=== PATIENT | female | born 1990 | race Two or more races ===

== ENCOUNTER → 2022-06-13 | Outpatient (CLI) | payer MEDICAID ==
[2022-06-13 12:40] LABS: Basophils # (auto) 0.2 10 ^3/uL (0-0.2); Basophils % (auto) 1.5 % (0.0-2.0); Eosinophils # (auto) 0.1 10 ^3/uL (0-0.8); Eosinophils % (auto) 0.6 % (0.0-7.0); Hematocrit 36.3 % (36.0-46.0); Hemoglobin 12.4 g/dL (12.2-16.2); Lymphocytes # (auto) 2.7 10 ^3/uL (0.4-5.4); Lymphocytes % (auto) 24.9 % (10.0-50.0); Mean Corpuscular Hemoglobin 30.8 pg (28.0-32.0); Mean Corpuscular Hgb Conc. 34.1 g/dL (32.0-36.0); Mean Corpuscular Volume 90.3 fL (80.0-100.0); Monocytes # (auto) 0.6 10 ^3/uL (0-1.3); Monocytes % (auto) 5.6 % (0.0-12.0); Neutrophils # (auto) 7.3 10 ^3/uL (1.6-8.6); Neutrophils % (auto) 67.4 % (37.0-80.0); Red Blood Cells 4.03 10^6/uL (4.0-5.20); Red Cell Distribution Width 12.7 % (11.8-14.3); White Blood Cell 10.8 10^3/uL (4.4-10.8)
[2022-06-13 13:15] LABS: Alcohol, Urine < 3.0 mg/dL (0-10); Amphetamine Screen, Urine NEGATIVE (NEGATIVE); Barbiturate Scree,Urine NEGATIVE (NEGATIVE); Benzodiazephine Screen, Urine NEGATIVE (NEGATIVE); Cannabinoid Screen, Urine NEGATIVE (NEGATIVE); Cocaine Screen, Urine NEGATIVE (NEGATIVE); Opiate Scree,Urine NEGATIVE (NEGATIVE); Phencyclidine Screen, Urine NEGATIVE (NEGATIVE)
[2022-06-14 06:06] LABS: RPR Non Reactive (Non Reactive)
== END | disposition home or self-care (01) ==
LOC: LAB 11:55
PROVIDERS: ATTEND Obstetrics & Gynecology Obstetrics
DX: Z34.80 Encounter for supervision of other normal pregnancy, unspecified trimester (principal); Z31.430 Encounter of female for testing for genetic disease carrier status for procreative management; Z36.0 Encounter for antenatal screening for chromosomal anomalies; N39.0 Urinary tract infection, site not specified; Z3A.00 Weeks of gestation of pregnancy not specified
CPT/HCPCS: 36415; 80307; 83036; 84112; 84702; 85025; 86592; 86703; 86762; 86850; 86900; 86901; 87086; 87340

== ENCOUNTER → 2022-09-06 | Outpatient (CLI) | payer MEDICAID ==
[2022-09-06 12:51] LABS: Basophils # (auto) 0 10 ^3/uL (0-0.2); Basophils % (auto) 0.3 % (0.0-2.0); Eosinophils # (auto) 0 10 ^3/uL (0-0.8); Eosinophils % (auto) 0.5 % (0.0-7.0); Hematocrit 35.4 % (36.0-46.0); Hemoglobin 11.6 g/dL (12.2-16.2); Lymphocytes # (auto) 2.5 10 ^3/uL (0.4-5.4); Lymphocytes % (auto) 24.9 % (10.0-50.0); Mean Corpuscular Hemoglobin 30.2 pg (28.0-32.0); Mean Corpuscular Hgb Conc. 32.9 g/dL (32.0-36.0); Mean Corpuscular Volume 91.9 fL (80.0-100.0); Monocytes # (auto) 0.5 10 ^3/uL (0-1.3); Neutrophils # (auto) 6.9 10 ^3/uL (1.6-8.6); Neutrophils % (auto) 69.3 % (37.0-80.0); Red Blood Cells 3.85 10^6/uL (4.0-5.20); Red Cell Distribution Width 13.2 % (11.8-14.3)
[2022-09-07 07:07] LABS: RPR Non Reactive (Non Reactive)
== END | disposition home or self-care (01) ==
LOC: LAB 12:39
PROVIDERS: ATTEND Obstetrics & Gynecology
DX: Z11.3 Encounter for screening for infections with a predominantly sexual mode of transmission (principal)
CPT/HCPCS: 36415; 85025; 86592

== ENCOUNTER 2022-09-23 17:45 | Observation (INO) | payer MEDICAID ==
[~2022-09-23] VITALS: Ht 157.5 cm; Wt 79.8 kg
== END 2022-09-23 20:37 | disposition home or self-care (01) ==
LOC: LDRP 17:45
PROVIDERS: ADMIT Obstetrics & Gynecology; ATTEND Obstetrics & Gynecology
DX: O24.419 Gestational diabetes mellitus in pregnancy, unspecified control (principal); O62.9 Abnormality of forces of labor, unspecified; Z3A.31 31 weeks gestation of pregnancy
CPT/HCPCS: 59025; 76818; 81002; 82962; G0378

== ENCOUNTER 2022-09-27 18:29 | Observation (INO) | payer MEDICAID ==
[2022-09-27] MEDS ORDERED: METF-370 PO (19:41)
== END 2022-09-27 20:11 | disposition home or self-care (01) ==
LOC: LDRP 18:29
PROVIDERS: ADMIT Obstetrics & Gynecology; ATTEND Obstetrics & Gynecology
DX: O24.419 Gestational diabetes mellitus in pregnancy, unspecified control (principal); Z3A.32 32 weeks gestation of pregnancy
CPT/HCPCS: 59025; 76818; 81002; 82948; 82962; 94760; G0378

== ENCOUNTER 2022-09-29 08:23 | Observation (INO) | payer MEDICAID ==
[~2022-09-29] VITALS: Ht 157.5 cm; Wt 78.9 kg
[~2022-09-29 08:23] MED LIST: METF-370 PO
[2022-10-03] MEDS ORDERED: PREN-96 PO ×2 (16:12)
== END 2022-10-03 17:32 | disposition home or self-care (01) ==
LOC: UNDOADMOB 10-03 15:42 → LDRP 10-03 15:42 → UNDODISOB 10-03 17:32
PROVIDERS: ADMIT Obstetrics & Gynecology; ATTEND Obstetrics & Gynecology
DX: O24.419 Gestational diabetes mellitus in pregnancy, unspecified control (principal); Z3A.32 32 weeks gestation of pregnancy
CPT/HCPCS: 59025; 76818; 81002; 82948; 82962; 94760; G0378

== ENCOUNTER 2022-09-29 18:28 | Observation (INO) | payer MEDICAID | END 2022-09-29 20:21 | disposition home or self-care (01) | LOC: LDRP 18:28 | PROVIDERS: ADMIT Obstetrics & Gynecology; ATTEND Obstetrics & Gynecology | DX: O24.415 Gestational diabetes mellitus in pregnancy, controlled by oral hypoglycemic drugs (principal); Z3A.32 32 weeks gestation of pregnancy; Z79.84 Long term (current) use of oral hypoglycemic drugs | CPT/HCPCS: 59025; 76818; 81002; 82948; 94760; G0378 ==

== ENCOUNTER 2022-10-06 18:56 | Observation (INO) | payer MEDICAID ==
[~2022-10-06] VITALS: Ht 157.5 cm; Wt 78.0 kg
[~2022-10-06 18:56] MED LIST changes: +PREN-96 PO
[2022-10-06] MEDS: TERBUTALINE SULFATE 1 MG/ML 1ML VIAL SC SCH ×3 (21:20→22:38)
== END 2022-10-06 23:50 | disposition home or self-care (01) ==
LOC: LDRP 18:56
PROVIDERS: ADMIT Obstetrics & Gynecology; ATTEND Obstetrics & Gynecology
DX: O24.419 Gestational diabetes mellitus in pregnancy, unspecified control (principal); O26.893 Other specified pregnancy related conditions, third trimester; R11.0 Nausea; Z3A.33 33 weeks gestation of pregnancy
CPT/HCPCS: 59025; 76818; 81002; 82948; 82962; 94760; 96360; 96361; 96372; G0378; J3105

== ENCOUNTER 2022-10-10 18:55 | Observation (INO) | payer MEDICAID ==
[~2022-10-10] VITALS: Ht 157.5 cm; Wt 78.9 kg
== END 2022-10-10 20:42 | disposition home or self-care (01) ==
LOC: LDRP 18:55
PROVIDERS: ADMIT Obstetrics & Gynecology; ATTEND Obstetrics & Gynecology
DX: O24.415 Gestational diabetes mellitus in pregnancy, controlled by oral hypoglycemic drugs (principal); Z3A.33 33 weeks gestation of pregnancy; Z79.84 Long term (current) use of oral hypoglycemic drugs
CPT/HCPCS: 59025; 76818; 81002; 82962; G0378

== ENCOUNTER 2022-10-13 18:53 | Observation (INO) | payer MEDICAID | END 2022-10-13 20:53 | disposition home or self-care (01) | LOC: LDRP 18:53 | PROVIDERS: ADMIT Obstetrics & Gynecology; ATTEND Obstetrics & Gynecology | DX: O24.419 Gestational diabetes mellitus in pregnancy, unspecified control (principal); Z3A.34 34 weeks gestation of pregnancy | CPT/HCPCS: 59025; 76818; 81002; 82948; 82962; G0378 ==

== ENCOUNTER 2022-10-17 09:58 | Observation (INO) | payer MEDICAID | END 2022-10-17 11:31 | disposition home or self-care (01) | LOC: UNDOADMOB 09:58 → LDRP 09:58 → UNDODISOB 11:31 | PROVIDERS: ADMIT Obstetrics & Gynecology; ATTEND Obstetrics & Gynecology | DX: O24.415 Gestational diabetes mellitus in pregnancy, controlled by oral hypoglycemic drugs (principal); Z3A.34 34 weeks gestation of pregnancy; Z79.84 Long term (current) use of oral hypoglycemic drugs | CPT/HCPCS: 59025; 76818; 81002; 82948; 82962; 94760; G0378 ==

== ENCOUNTER → 2022-10-19 | Outpatient (CLI) | payer MEDICAID ==
[2022-10-19 10:24] LABS: Basophils # (auto) 0.1 10 ^3/uL (0-0.2); Basophils % (auto) 0.8 % (0.0-2.0); Eosinophils # (auto) 0 10 ^3/uL (0-0.8); Eosinophils % (auto) 0.4 % (0.0-7.0); Hematocrit 33.7 % (36.0-46.0); Hemoglobin 12.1 g/dL (12.2-16.2); Lymphocytes # (auto) 2.2 10 ^3/uL (0.4-5.4); Mean Corpuscular Hemoglobin 32.3 pg (28.0-32.0); Mean Corpuscular Volume 89.7 fL (80.0-100.0); Monocytes # (auto) 0.4 10 ^3/uL (0-1.3); Monocytes % (auto) 5.1 % (0.0-12.0); Neutrophils % (auto) 68.7 % (37.0-80.0); Nucleated Red Blood Cells % 0.1 %; Red Blood Cells 3.76 10^6/uL (4.0-5.20); Red Cell Distribution Width 13.5 % (11.8-14.3); White Blood Cell 8.7 10^3/uL (4.4-10.8)
[2022-10-20 08:06] LABS: RPR Non Reactive (Non Reactive)
== END | disposition home or self-care (01) ==
LOC: LAB 10:06
PROVIDERS: ATTEND Obstetrics & Gynecology
DX: Z34.80 Encounter for supervision of other normal pregnancy, unspecified trimester (principal); Z3A.00 Weeks of gestation of pregnancy not specified
CPT/HCPCS: 36415; 84112; 85025; 86592

== ENCOUNTER 2022-10-20 09:57 | Observation (INO) | payer MEDICAID | END 2022-10-20 13:00 | disposition home or self-care (01) | LOC: LDRP 09:57 → UNDOADMOB 09:57 → LDRP 10:52 | PROVIDERS: ADMIT Obstetrics & Gynecology; ATTEND Obstetrics & Gynecology | DX: O24.415 Gestational diabetes mellitus in pregnancy, controlled by oral hypoglycemic drugs (principal); O26.893 Other specified pregnancy related conditions, third trimester; R19.7 Diarrhea, unspecified; Z3A.35 35 weeks gestation of pregnancy; Z79.84 Long term (current) use of oral hypoglycemic drugs | CPT/HCPCS: 59025; 76818; 81002; 82948; 94760; G0378 ==

== ENCOUNTER 2022-10-24 07:57 | Observation (INO) | payer MEDICAID ==
[2022-10-24] MEDS ORDERED: DOXY25TA9 PO (12:27)
== END 2022-10-24 12:48 | disposition home or self-care (01) ==
LOC: LDRP 10:34 → UNDOADMOB 10:34 → LDRP 11:50
PROVIDERS: ADMIT Obstetrics & Gynecology; ATTEND Obstetrics & Gynecology
DX: O24.419 Gestational diabetes mellitus in pregnancy, unspecified control (principal); Z3A.35 35 weeks gestation of pregnancy
CPT/HCPCS: 59025; 76818; 81002; 82948; 82962; 94760; G0378

== ENCOUNTER 2022-10-26 14:16 | Observation (INO) | payer MEDICAID ==
[~2022-10-26 14:16] MED LIST changes: +DOXY25TA9 PO
== END 2022-10-27 10:49 | disposition home or self-care (01) ==
LOC: UNDOADMOB 10-27 08:47 → LDRP 10-27 08:47
PROVIDERS: ADMIT Obstetrics & Gynecology; ATTEND Obstetrics & Gynecology
DX: O24.419 Gestational diabetes mellitus in pregnancy, unspecified control (principal); O34.33 Maternal care for cervical incompetence, third trimester; Z3A.36 36 weeks gestation of pregnancy
CPT/HCPCS: 59025; 76818; 81002; 82948; 82962; 94760; G0378

== ENCOUNTER 2022-11-01 09:21 | Observation (INO) | payer MEDICAID | END 2022-11-01 12:32 | disposition home or self-care (01) | LOC: LDRP 09:44 → UNDOADMOB 09:45 → LDRP 09:45 | PROVIDERS: ADMIT Obstetrics & Gynecology; ATTEND Obstetrics & Gynecology | DX: O24.419 Gestational diabetes mellitus in pregnancy, unspecified control (principal); O26.893 Other specified pregnancy related conditions, third trimester; R51.9 Headache, unspecified; Z3A.37 37 weeks gestation of pregnancy | CPT/HCPCS: 59025; 76818; 81002; 82948; 82962; 94760; G0378 ==

== ENCOUNTER 2022-11-04 09:25 | Observation (INO) | payer MEDICAID | END 2022-11-04 11:35 | disposition home or self-care (01) | LOC: LDRP 09:25 → UNDOADMOB 09:25 → LDRP 09:33 → UNDODISOB 11:35 | PROVIDERS: ADMIT Obstetrics & Gynecology; ATTEND Obstetrics & Gynecology | DX: O36.8130 Decreased fetal movements, third trimester, not applicable or unspecified (principal); O62.9 Abnormality of forces of labor, unspecified; Z3A.37 37 weeks gestation of pregnancy; Z79.84 Long term (current) use of oral hypoglycemic drugs | CPT/HCPCS: 59025; 76818; 81002; 82948; 82962; 94760; G0378 ==

== ENCOUNTER 2022-11-07 09:06 | Observation (INO) | payer MEDICAID | END 2022-11-07 10:38 | disposition home or self-care (01) | LOC: UNDOADMOB 09:06 → LDRP 09:06 → UNDODISOB 10:38 | PROVIDERS: ADMIT Obstetrics & Gynecology; ATTEND Obstetrics & Gynecology | DX: O24.419 Gestational diabetes mellitus in pregnancy, unspecified control (principal); O62.9 Abnormality of forces of labor, unspecified; Z3A.37 37 weeks gestation of pregnancy | CPT/HCPCS: 59025; 76818; 81002; 82962; 94760; G0378 ==

== ENCOUNTER 2022-11-10 08:19 | Observation (INO) | payer MEDICAID | END 2022-11-10 11:00 | disposition home or self-care (01) | LOC: UNDOADMOB 09:09 → LDRP 09:09 → UNDODISOB 11:00 | PROVIDERS: ADMIT Obstetrics & Gynecology; ATTEND Obstetrics & Gynecology | DX: O24.419 Gestational diabetes mellitus in pregnancy, unspecified control (principal); O99.891 Other specified diseases and conditions complicating pregnancy; M54.9 Dorsalgia, unspecified; O62.9 Abnormality of forces of labor, unspecified; Z3A.38 38 weeks gestation of pregnancy | CPT/HCPCS: 59025; 76818; 81002; 82948; 82962; 94760; G0378 ==

== ENCOUNTER 2022-11-15 19:13 | Inpatient (IN) | payer MEDICAID ==
[~2022-11-15] VITALS: Ht 157.5 cm; Wt 80.7 kg
[2022-11-15] MEDS ORDERED: PROMETHAZINE HCL 25 MG/ML 1ML IV PRN (19:45)
[2022-11-15] MEDS ORDERED: BUTORPHANOL TARTRATE 2 MG/1 ML VIAL IV PRN ×2 (19:45)
[2022-11-15] MEDS ORDERED: LIDOCAINE 2%HCL (LOCAL ANESTH.) INJ 20ML MDV IJ PRN (19:45)
[2022-11-15] MEDS ORDERED: diphenhdrAMINE HCL 50 MG/1 ML VL IV PRN (20:45)
[2022-11-15] MEDS ORDERED: FAMOTIDINE (10MG/ML) 2ML VL IV PRN (20:45)
[2022-11-15] MEDS ORDERED: miSOPROStol 100 mcg TAB SL PRN (20:45)
[2022-11-15] MEDS ORDERED: D5W/LACTATED RINGERS 1,000 ML IV PRN (20:45)
[2022-11-15] MEDS ORDERED: DEXTROSE (50%) 50ML SYRG IV ONE ×2 (20:45→21:00)
[2022-11-15] MEDS ORDERED: ACETAMINOPHEN 325 MG TAB PO PRN (20:45)
[2022-11-15] MEDS ORDERED: TRANEXAMIC ACID 1,000 MG in SODIUM CHL 0.9% 100 ML IV PRN (20:45)
[2022-11-15] MEDS ORDERED: LACT. RINGERS/OXYTOCIN 20UNITS 500 ML IV ONE ×2 (20:45→21:15)
[2022-11-15] MEDS ORDERED: CARBOPROST TROMETHAMINE 250 MCG/1ML VIAL IM PRN (20:45)
[2022-11-15] MEDS ORDERED: ONDANSETRON HCL 4 MG/2 ML VIAL IV PRN (20:45)
[2022-11-15] MEDS ORDERED: METHYLERGONOVINE MALEATE 0.2 MG/ML AMP IM PRN (20:45)
[2022-11-15 20:56] LABS: Basophils # (auto) 0.1 10 ^3/uL (0-0.2); Basophils % (auto) 0.8 % (0.0-2.0); Eosinophils # (auto) 0 10 ^3/uL (0-0.8); Eosinophils % (auto) 0.3 % (0.0-7.0); Hematocrit 35.1 % (36.0-46.0); Hemoglobin 11.7 g/dL (12.2-16.2); Lymphocytes # (auto) 2.5 10 ^3/uL (0.4-5.4); Mean Corpuscular Hemoglobin 30.4 pg (28.0-32.0); Mean Corpuscular Hgb Conc. 33.4 g/dL (32.0-36.0); Mean Corpuscular Volume 91.1 fL (80.0-100.0); Monocytes # (auto) 0.6 10 ^3/uL (0-1.3); Monocytes % (auto) 6.5 % (0.0-12.0); Neutrophils # (auto) 6.3 10 ^3/uL (1.6-8.6); Neutrophils % (auto) 66.4 % (37.0-80.0); Nucleated Red Blood Cells % 0.1 %; Red Blood Cells 3.85 10^6/uL (4.0-5.20); Red Cell Distribution Width 14.5 % (11.8-14.3); White Blood Cell 9.4 10^3/uL (4.4-10.8)
[2022-11-15 20:59] LABS: Urine Bacteria FEW /hpf (None Seen); Urine Blood Negative /uL (Negative); Urine Mucus FEW (None Seen); Urine Specific Gravity 1.032 (1.001-1.035); Urine WBC <1 /hpf (0 - 5)
[2022-11-15 21:09] LABS: Alcohol, Urine < 3.0 mg/dL (0-10); Amphetamine Screen, Urine NEGATIVE (NEGATIVE); Barbiturate Scree,Urine NEGATIVE (NEGATIVE); Benzodiazephine Screen, Urine NEGATIVE (NEGATIVE); Cannabinoid Screen, Urine NEGATIVE (NEGATIVE); Cocaine Screen, Urine NEGATIVE (NEGATIVE); Opiate Scree,Urine NEGATIVE (NEGATIVE); Phencyclidine Screen, Urine NEGATIVE (NEGATIVE)
[2022-11-15 21:12] LABS: INR 0.87 (0.9-1.15); Partial Thromboplastin Time 23.4 sec (24.6-33.4)
[2022-11-15 21:22] LABS: Albumin 2.3 g/dL (3.4-5.0); BUN/Creatinine Ratio 23.3 (10.0-20.0); Calcium 8.6 mg/dL (8.5-10.1)
[2022-11-15 21:24] LABS: Bilirubin, Total 0.3 mg/dL (0.2-1.0); Total Protein 6.4 g/dL (6.4-8.2)
[2022-11-15] MEDS ORDERED: ACCU-CHEK COMFORT CURVE STRIP VI SCH ×2 (22:00)
[2022-11-15] MEDS: LACTATED RINGER'S 1,000 ML IV SCH (22:25)
[2022-11-15] MEDS: miSOPROStol 50 MCG per PRE-CUT 1/2 TAB PO PRN (23:08)
[2022-11-15] MEDS: WITCH HAZEL-GLYCERIN PAD TOP PRN (23:08)
[2022-11-15] MEDS: PHISODERM TOP SOLN 240ML BTL TOP PRN (23:08)
[2022-11-15] MEDS: DERMOPLAST 60ML BOTTLE TOP PRN (23:08)
[2022-11-16] MEDS ORDERED: DIPHENOXYLATE W/ATROPINE 2.5 MG TAB PO SCH
[2022-11-16] MEDS: LACTATED RINGER'S 1,000 ML IV SCH ×2 (00:58→03:30)
[2022-11-16] MEDS ORDERED: fentaNYL CITRATE 100 MCG/2 ML VL IV ONE (01:30)
[2022-11-16] MEDS ORDERED: ePHEDrine SULFATE 50 MG/ML AMP IV ONE (01:30)
[2022-11-16] MEDS ORDERED: LIDOCAINE W/ EPINEPHRINE 1.5 % INJ 5ML AMP IJ ONE (01:30)
[2022-11-16] MEDS ORDERED: LACTATED RINGER'S 1,000 ML IV ONE (01:30)
[2022-11-16] MEDS ORDERED: NALOXONE HCL 0.4 MG/ML VIAL IV ONE (01:30)
[2022-11-16] MEDS ORDERED: Lidocaine W-Epinephrine 1.5%-1:200,000 INJ 10ml Vial ONE (01:54)
[2022-11-16] MEDS ORDERED: MINERAL OIL TOPICAL 10ml TOP PRN (02:00)
[2022-11-16] MEDS: ROPIVACAINE HCL 200 ML EPI SCH ×2 (05:15→17:35)
[2022-11-16] MEDS: miSOPROStol 50 MCG per PRE-CUT 1/2 TAB PO PRN ×2 (05:33→09:32)
[2022-11-16] MEDS ORDERED: TERBUTALINE SULFATE 1 MG/ML 1ML VIAL SC PRN (13:00)
[2022-11-16] MEDS ORDERED: LACT. RINGERS/OXYTOCIN 20UNITS 1,000 ML IV SCH (13:00)
[2022-11-16] MEDS ORDERED: diphenhdrAMINE HCL 50 MG/1 ML VL IV ONE (15:15)
[2022-11-16] MEDS ORDERED: LACT. RINGERS/OXYTOCIN 20UNITS 500 ML IV ONE (18:00)
[2022-11-16] MEDS ORDERED: ACETAMINOPHEN 325 MG TAB PO PRN (18:45)
[2022-11-16 19:26] VITALS: BP 123/66
[2022-11-16] MEDS: IBUPROFEN 600 MG TAB PO PRN (19:42)
[2022-11-16] MEDS ORDERED: DOCUSATE SOD 100 MG CAP PO SCH (22:00)
[2022-11-16 23:30] VITALS: BP 116/71
[2022-11-17 02:33] VITALS: BP 102/67
[2022-11-17 05:29] LABS: Basophils # (auto) 0 10 ^3/uL (0-0.2); Basophils % (auto) 0.1 % (0.0-2.0); Eosinophils # (auto) 0 10 ^3/uL (0-0.8); Eosinophils % (auto) 0.2 % (0.0-7.0); Hematocrit 33.1 % (36.0-46.0); Hemoglobin 11.2 g/dL (12.2-16.2); Lymphocytes # (auto) 2.5 10 ^3/uL (0.4-5.4); Lymphocytes % (auto) 15.5 % (10.0-50.0); Mean Corpuscular Hemoglobin 30.9 pg (28.0-32.0); Mean Corpuscular Hgb Conc. 33.8 g/dL (32.0-36.0); Mean Corpuscular Volume 91.4 fL (80.0-100.0); Monocytes # (auto) 0.8 10 ^3/uL (0-1.3); Monocytes % (auto) 4.7 % (0.0-12.0); Neutrophils # (auto) 12.9 10 ^3/uL (1.6-8.6); Neutrophils % (auto) 79.5 % (37.0-80.0); Nucleated Red Blood Cells % 0.1 %; Red Blood Cells 3.62 10^6/uL (4.0-5.20); Red Cell Distribution Width 14.6 % (11.8-14.3); White Blood Cell 16.2 10^3/uL (4.4-10.8)
[2022-11-17 06:06] LABS: RPR Non Reactive (Non Reactive)
[2022-11-17] MEDS ORDERED: IBU600T PO (06:09)
[2022-11-17] MEDS ORDERED: ACET325T10 PO (06:09)
[2022-11-17] MEDS ORDERED: DOCU100C10 PO (06:09)
[2022-11-17 07:00] VITALS: BP 123/82
[2022-11-17] MEDS: IBUPROFEN 600 MG TAB PO PRN ×2 (07:14→16:25)
[2022-11-17 10:43] VITALS: BP 104/71
[2022-11-17] MEDS ORDERED: TRANEXAMIC ACID 1,000 mg/10ml INJ VIAL IV ONE (12:28)
[2022-11-17 15:30] VITALS: BP 105/77
[2022-11-17 15:33] VITALS: BP 105/77
[2022-11-17] MEDS: WITCH HAZEL-GLYCERIN PAD TOP PRN (16:25)
[2022-11-17] MEDS: PHISODERM TOP SOLN 240ML BTL TOP PRN (16:25)
[2022-11-17] MEDS: DERMOPLAST 60ML BOTTLE TOP PRN (16:25)
[2022-11-17 19:30] VITALS: BP 115/78
== END 2022-11-17 20:10 | disposition home or self-care (01) | DRG 560 ==
LOC: LDRP 19:13
PROVIDERS: ADMIT Obstetrics & Gynecology; ATTEND Obstetrics & Gynecology
PROC: 10E0XZZ Delivery of Products of Conception, External Approach (ICD-10-PCS; principal; 2022-11-16)
PROC: 3E0R3BZ Introduction of Anesthetic Agent into Spinal Canal, Percutaneous Approach (ICD-10-PCS; 2022-11-16)
PROC: 00HU33Z Insertion of Infusion Device into Spinal Canal, Percutaneous Approach (ICD-10-PCS; 2022-11-16)
DX: O24.429 Gestational diabetes mellitus in childbirth, unspecified control (principal); Z37.0 Single live birth; Z20.822 Contact with and (suspected) exposure to COVID-19; Z3A.39 39 weeks gestation of pregnancy; Z90.49 Acquired absence of other specified parts of digestive tract
CPT/HCPCS: 36415; 59025; 59409; 62282; 80053; 80307; 81001; 82962; 85025; 85610; 85730; 86592; 86850; 86900; 86901; 87426; 94760; 94762; 96360; 96361; 96365; 96366; G0378; J2590

== ENCOUNTER → 2022-12-27 | Outpatient (CLI) | payer MEDICAID ==
[~2022-12-27] MED LIST changes: +ACET325T10 PO; +DOCU100C10 PO; -DOXY25TA9 PO; +IBU600T PO; -METF-370 PO
== END | disposition home or self-care (01) ==
LOC: LAB 09:04
PROVIDERS: ATTEND Obstetrics & Gynecology
DX: Z39.2 Encounter for routine postpartum follow-up (principal)
CPT/HCPCS: 36415; 82951; 84439; 84443; 87086; 87088; 87186

== ENCOUNTER → 2022-12-29 | Outpatient (CLI) | payer MEDICAID | END | disposition home or self-care (01) | LOC: LAB 11:29 | PROVIDERS: ATTEND Obstetrics & Gynecology | DX: Z39.2 Encounter for routine postpartum follow-up (principal) | CPT/HCPCS: 36415; 83036 ==